=== PATIENT | female | born 1970 | race Two or more races ===

== ENCOUNTER → 2017-04-06 | Outpatient (CLI) | payer OTHER | LOC: BRMIMAGING 11:36 | DX: Z12.31 Encounter for screening mammogram for malignant neoplasm of breast (principal) | CPT/HCPCS: G0202 ==

== ENCOUNTER → 2018-04-13 | Outpatient (CLI) | payer OTHER | LOC: BRMIMAGING 13:07 | DX: Z12.31 Encounter for screening mammogram for malignant neoplasm of breast (principal) ==